=== PATIENT | female | born 1990 | race Caucasian/White ===

== ENCOUNTER 2025-02-01 13:00 | Outpatient (RCR) | payer BC, SELFPAY ==
--- NOTE | 2024-11-20 15:32 | OPREHPOC ---
Outpatient Therapy Plan of Care This is a Multidisciplinary Plan of Care that may contain components documented by all disciplines (PT, OT, and ST.) PT Problem 1 PT Problem #1 Knowledge Deficit PT Goal 1 Goal / Goal Update *independent with HEP Target Visit 9 PT Problem 2 PT Problem #2 Pain PT Goal 1 Goal / Goal Update * pain rating at worst for LE with walking of 3/10 Target Visit 9 PT Problem 3 PT Problem #3 Impaired Functional Mobility PT Goal 1 Goal / Goal Update 1* sit to/from stand from wheel chair with use of 1 UE, independent 2* pt ambulate with wheeled walker, maximum distance of 300', modified independent 3* pt up/down 3 steps with walker and minimal assist of one 4* pt ambulate with step length pass other foot and good hip and knee flexion with stance phase Target Visit 9
--- NOTE | 2024-11-20 15:32 | PTOPEVAL1 ---
Assessment and note entered by Anamaria Abreu, PT Evaluation Information Assessment Status Evaluation ICD-10 Condition Codes (PT) Difficulty Walking R26.2,Abnormalities of gait and mobility R26.9,Weakness R53.1 Onset Sep 2024 Subjective Information had initial bilateral BKA in 2020, did not have prosthesis, walked in home on her knees and used motorized scooter; had revision of both legs due to infection in December 2023, received new prosthesis Sep 2024; was hospitalized and had cardiac valve replacement in October 2024; now healthy and ready to start using her new prosthesis, doing some walking; have walked a few times at home with her walker; prosthesis were made by [employer] activity: able to do her home and self care tasks from power w/c; use motorized scooter in community; have 3 steps into her home, use knee pads and have power w/c stays in the house. 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 She had recent revision of stumps, cardiac valve replacement and has new prosthesis. She has assist at home for some tasks and uses a motorized scooter for mobility. With the evaluation: independent with supine/sit transfer; w/c<> mat sliding transfer; sit to stand difficulty with min assist x1; maximum walking distance 75' due to knee pain increase to 5/10; indep with donning/ doffing prosthesis. She has good ROM and strength of bilateral hips and knees. Skilled PT services are indicated for gait and balance retraining with bilateral LE prosthesis, with education for HEP and prosthesis training. Plan of Care Interventions Gait Training,Neuro Re-education,Patient/Caregiver Education,Therapeutic Activities,Therapeutic Exercise PT Services Indicated Yes Treatment Frequency and 2x/wk for 9 visits Duration These treatments will address the objective and functional deficits as defined above. The patient will be advanced safely and appropriately in order for the patient to progress towards his/her prior level of function. Additional exercises will be introduced and as well as a comprehensive home exercise program upon discharge, if needed, ?to ensure carryover of functional gains achieved in the clinic. This treatment plan has been reviewed and agreement upon by the patient.
--- NOTE | 2024-12-18 15:26 | OPREHPOC ---
Outpatient Therapy Plan of Care This is a Multidisciplinary Plan of Care that may contain components documented by all disciplines (PT, OT, and ST.) PT Problem 1 PT Problem #1 Knowledge Deficit PT Goal 1 Goal / Goal Update *independent with HEP 12-18-24 progress goal met continue towards, to progress Target Visit 17 PT Problem 2 PT Problem #2 Pain PT Goal 1 Goal / Goal Update * pain rating at worst for LE with walking of 10 12-18-24 progress goal not met, increase to 610 continue towards goal Target Visit 17 PT Problem 3 PT Problem #3 Impaired Functional Mobility PT Goal 1 Goal / Goal Update 1* sit to/from stand from wheel chair with use of 1 UE, independent 2* pt ambulate with wheeled walker, maximum distance of 300', modified independent 3* pt up/down 3 steps with walker and minimal assist of one 4* pt ambulate with step length pass other foot and good hip and knee flexion with stance phase 12-18-24 progress goals 1,2,3 met NEW GOALS: 1* pt ambulate with crutches and good swing through with hip and knee flexion 2* 2 minute walking test distance of 250' with crutches 3* 4 steps with one hand railing, independent 4* pt report wearing tolerance of bilateral LE prosthesis of 4 hours 5* pt report in home, walking and using prosthesis 25% of the day Target Visit 17 PT Problem 4 PT Problem #4 Impaired Balance PT Goal 1 Goal / Goal Update 12-18-24 progress NEW GOALS: 1* Lewis balance score of 48/56 2* pt stand with 75% trunk rotation to R and L x 3 reps each 3* pt stand and pickling drum operator item off floor, without UE support Target Visit 17
--- NOTE | 2024-12-18 15:27 | PTOPPROG ---
Assessment and note entered by Anamaria Abreu, PT Assessment Status Progress ICD-10 Condition Codes (PT) Difficulty Walking R26.2,Abnormalities of gait and mobility R26.9,Weakness R53.1 Onset Sep 2024 Subjective Information have improved with everything since coming for therapy--walking, standing, balance; saw Transmitter Engineer yesterday- they added pads and are going to be able to be fitted for new prosthesis' on January 08; is wearing the prosthesis about 1 hour, then legs hurt and purple on bottom of legs; wearing 1 time/ day only with walking and standing; at home, is walking 1-2 times a day, only when other family there; for mobility in home, is using knee pads and walking on knees; use motorized scooter when going out in community; GOAL: to be able to stand and reach, to do things in kitchen ; better balance in standing and be able to reach to floor in standing Assessment PT Clinical Summary Hillary has received a total of 9 PT sessions. Reports pain in both legs 0-6/10. She has improved with all mobility with her bilateral LE prosthesis: is now walking total distance of 600' with wheeled walker, CGA in 10 minutes and 10 seconds; 2 minute walking distance of 125'; static standing without UE support x 10 minutes; static standing with UE motions without UE support x 10 reps shoulder flexion and abduction motions; trunk rotation R/L with ~ 25- 50% range; independent with donning and doffing prosthesis, with wearing time ~ 1 hour due to leg pain--is working with Transmitter Engineer for fit of them. Lewis balance score of 29/56. On 4 steps with bilateral hand railing and alternating step pattern with CGA. The goals were partially achieved. Continue PT treatment to further increase mobility balance and gait skills. With progression of HEP and to lesser assistive device. Plan of Care Interventions Gait Training,Neuro Re-education,Patient/Caregiver Education,Therapeutic Activities,Therapeutic Exercise PT Services Indicated Yes Treatment Frequency and 1-2x/wk for 8 visits Duration These treatments will address the objective and functional deficits as defined above. The patient will be advanced safely and appropriately in order for the patient to progress towards his/her prior level of function. Additional exercises will be introduced and as well as a comprehensive home exercise program upon discharge, if needed, ?to ensure carryover of functional gains achieved in the clinic. This treatment plan has been reviewed and agreement upon by the patient.
--- NOTE | 2025-01-15 11:58 | PCPTNOTE ---
pt did not show for today's appointment. Called and left voice mail message, with reminder for next appt time.
--- NOTE | 2025-02-01 17:58 | OPREHPOC ---
Outpatient Therapy Plan of Care This is a Multidisciplinary Plan of Care that may contain components documented by all disciplines (PT, OT, and ST.) PT Problem 1 PT Problem #1 Knowledge Deficit PT Goal 1 Goal / Goal Update *independent with HEP 12-18-24 progress goal met continue towards, to progress Target Visit 17 Progress Met PT Problem 2 PT Problem #2 Pain PT Goal 1 Goal / Goal Update * pain rating at worst for LE with walking of 10 01-01-25 progress Continues to have pain in stumps with upright activity Target Visit 17 Progress Not Met PT Problem 3 PT Problem #3 Impaired Functional Mobility PT Goal 1 Goal / Goal Update 1* sit to/from stand from wheel chair with use of 1 UE, independent 2* pt ambulate with wheeled walker, maximum distance of 300', modified independent 3* pt up/down 3 steps with walker and minimal assist of one 4* pt ambulate with step length pass other foot and good hip and knee flexion with stance phase 12-18-24 progress goals 1,2,3 met NEW GOALS: 1* pt ambulate with crutches and good swing through with hip and knee flexion 2* 2 minute walking test distance of 250' with crutches 3* 4 steps with one hand railing, independent 4* pt report wearing tolerance of bilateral LE prosthesis of 4 hours 5* pt report in home, walking and using prosthesis 25% of the day Target Visit 17 Progress Met PT Problem 4 PT Problem #4 Impaired Balance PT Goal 1 Goal / Goal Update 12-18-24 progress NEW GOALS: 1* Lewis balance score of 48/56 2* pt stand with 75% trunk rotation to R and L x 3 reps each 3* pt stand and molded goods spot picker item off floor, without UE support Target Visit 17 Progress Met
--- NOTE | 2025-02-01 17:58 | PTOPDC ---
Assessment and note entered by [place], PT Evaluation Information Assessment Status Discharge ICD-10 Condition Codes (PT) Difficulty Walking R26.2,Abnormalities of gait and mobility R26.9,Weakness R53.1 Onset Sep 2024 Subjective Information Reports that overall she has seen improvement. Feels she is still short of where she would like to be because she is unable to spend too much time in her prosthetics due to circulation issues and pressure. Currently awaiting MD follow up to reschedule appointing with picker / packer. She would like to push herself harder when she is capable due to better fitting. Reported Pain Level Pain Score 0: Self Report Assessment PT Clinical Summary Patient has shown excellent progress in gait and mobility at this point. she has shown great progress with functional mobility and transfers. Overall her current limitation evolves around decreased tolerance to time in prosthetic and this is her greatest limit to functional capacity. Will be discharged to [facility] at this time with intention to return after prosthetic alterations. Plan of Care PT Services Indicated Yes
== END 2025-02-02 09:19 | disposition home or self-care (01) ==
LOC: ANHPT 13:00
PROVIDERS: Visit Provider Nurse Practitioner Family
DX: S88.119D Complete traumatic amputation at level between knee and ankle, unspecified lower leg, subsequent encounter (principal)
CPT/HCPCS: 97110; 97116; 97161; 97530